=== PATIENT | male | born 1945 | race Caucasian/White ===

== ENCOUNTER 2021-03-12 17:52 | Emergency (ER) | payer MEDICARE ==
[~2021-03-12] VITALS: Ht 175.3 cm; Wt 95.5 kg
[~2021-03-12 17:52] MED LIST: METF-950 PO
[2021-03-12 18:17] LABS: CLARITY,URINE CLEAR (Clear); COLOR,URINE YELLOW (Yellow); GLUCOSE, URINE >=1000 mg/dl (Neg); KETONES,URINE TRACE mg/dl (Neg); LEUKOCYTE ESTERASE ,URINE NEGATIVE (Neg); NITRITES, URINE NEGATIVE (Neg); OCCULT BLOOD,URINE NEGATIVE (Neg); PROTEIN,URINE NEGATIVE (Neg); UROBILINOGEN,URINE 0.2 E.U/dL (0.2-1.0)
[2021-03-12 18:18] LABS: BASOPHILS # (AUTO) 0.1 X10'3 (0-0.2); BASOPHILS % (AUTO) 1.1 % (0-1); EOSINOPHILS # (AUTO) 0.1 X10'3 (0-0.9); LYMPHOCYTES # (AUTO) 1.7 X10'3 (1.1-4.8); LYMPHOCYTES % (AUTO) 27.1 % (21-51); MEAN CORPUSCULAR HEMOGLOBIN 31.3 PG (27.0-31.0); MEAN CORPUSCULAR HGB CONC 34.9 g/dL (33.0-36.5); MEAN CORPUSCULAR VOLUME 89.7 FL (78-98); MEAN PLATELET VOLUME 7.1 FL (7.4-10.4); MONOCYTES # (AUTO) 0.4 X10'3 (0-0.9); MONOCYTES % (AUTO) 6.7 % (2-12); NEUTROPHILS % (AUTO) 63.1 % (42-75); PLATELET COUNT 239 X10'3 (140-440); RED BLOOD COUNT 5.12 X10'6 (4.70-6.10); RED CELL DISTRIBUTION WIDTH 13.9 % (11.5-14.5); WHITE BLOOD COUNT 6.3 X10'3 (4.5-11.0)
[2021-03-12 18:22] LABS: PARTIAL THROMBOPLASTIN TIME 27 SECONDS (22-32)
[2021-03-12 18:26] LABS: ALANINE AMINOTRANSFERASE 41 U/L (12-78); ALBUMIN 3.9 G/DL (3.4-5.0); ALBUMIN/GLOBULIN RATIO 1.2 (1.1-1.5); ALKALINE PHOSPHATASE 76 IU/L (46-116); ANION GAP 9 (8-16); ASPARTATE AMINO TRANSFERASE 25 U/L (10-37); BILIRUBIN,TOTAL 0.7 MG/DL (0.1-1.0); BLOOD UREA NITROGEN 22 MG/DL (7-18); BUN/CREATININE RATIO 15.6 (5.4-32.0); CALCIUM 9.3 MG/DL (8.5-10.1); CHLORIDE 102 MMOL/L (99-107); CREATININE 1.41 MG/DL (0.60-1.10); GLUCOSE 145 MG/DL (70-104); SODIUM 138 MMOL/L (135-145); TOTAL CARBON DIOXIDE 27.3 MMOL/L (24-32); TOTAL PROTEIN 7.2 G/DL (6.4-8.2); eGFR 49 ML/MIN
[2021-03-12 18:37] LABS: UA COLLECTION TYPE NON-SPECIFIED
[2021-03-12 18:38] LABS: BACTERIA,URINE NONE SEEN /HPF (Neg); MUCUS STRANDS FEW /LPF (Neg); RBC,URINE 0-2 /HPF (0-2); SQUAMOUS EPITHELIAL CELL,UR FEW /LPF (FEW); WBC,URINE NONE SEEN /HPF (0-4)
--- NOTE | 2021-03-12 18:46 | NUR ---
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
[2021-03-12] MEDS ORDERED: VALA10002 PO (19:00)
[2021-03-12] MEDS ORDERED: valacyclovir 500mg tablet PO ONE (19:00)
[2021-03-12] MEDS ORDERED: predniSONE 20 mg tablet PO ONE (19:00)
[2021-03-12] MEDS ORDERED: PRED20TA PO (19:00)
[2021-03-12] MEDS ORDERED: ERYT1OIN6 LEFTEYE (19:16)
[2021-03-12 20:40] VITALS: BP 142/75
== END 2021-03-12 20:41 | disposition home or self-care (01) ==
LOC: ER 17:54
DX: G51.0 Bell's palsy (principal); E78.00 Pure hypercholesterolemia, unspecified; I10 Essential (primary) hypertension; E11.9 Type 2 diabetes mellitus without complications; Z85.9 Personal history of malignant neoplasm, unspecified; Z79.899 Other long term (current) drug therapy
CPT/HCPCS: 36415; 70450; 71045; 80053; 81001; 85025; 85610; 85730; 86885; 86900; 86901; 93005; 99285; J7512

== ENCOUNTER 2022-07-10 21:46 | Inpatient (IN) | payer MEDICARE ==
[~2022-07-10] VITALS: Ht 172.7 cm; Wt 95.0 kg
[~2022-07-10 21:46] MED LIST changes: +METF-1203 PO; -METF-950 PO; +VALA10002 PO
[2022-07-10 22:14] LABS: BASOPHILS # (AUTO) 0.1 X10'3 (0-0.2); BASOPHILS % (AUTO) 1.2 % (0-1); EOSINOPHILS # (AUTO) 0.1 X10'3 (0-0.9); EOSINOPHILS % (AUTO) 1.2 % (0-6); HEMATOCRIT 46.2 % (42.0-52.0); HEMOGLOBIN 15.5 g/dl (14.0-17.9); LYMPHOCYTES # (AUTO) 0.5 X10'3 (1.1-4.8); LYMPHOCYTES % (AUTO) 9.8 % (21-51); MEAN CORPUSCULAR HEMOGLOBIN 30.6 PG (27.0-31.0); MEAN CORPUSCULAR HGB CONC 33.6 g/dL (33.0-36.5); MEAN CORPUSCULAR VOLUME 90.9 FL (78-98); MEAN PLATELET VOLUME 7.1 FL (7.4-10.4); MONOCYTES # (AUTO) 0.3 X10'3 (0-0.9); NEUTROPHILS # (AUTO) 4.6 X10'3 (1.8-7.7); NEUTROPHILS % (AUTO) 81.8 % (42-75); PLATELET COUNT 187 X10'3 (140-440); RED BLOOD COUNT 5.08 X10'6 (4.70-6.10); RED CELL DISTRIBUTION WIDTH 14.7 % (11.5-14.5); WHITE BLOOD COUNT 5.6 X10'3 (4.5-11.0)
[2022-07-10 22:21] LABS: ALANINE AMINOTRANSFERASE 488 U/L (12-78); ALBUMIN 3.8 G/DL (3.4-5.0); ALBUMIN/GLOBULIN RATIO 1.1 (1.1-1.5); ALKALINE PHOSPHATASE 189 IU/L (46-116); ANION GAP 7 (8-16); ASPARTATE AMINO TRANSFERASE 492 U/L (10-37); BILIRUBIN,TOTAL 3.1 MG/DL (0.1-1.0); BLOOD UREA NITROGEN 22 MG/DL (7-18); BUN/CREATININE RATIO 13.3 (5.4-32.0); CALCIUM 10.6 MG/DL (8.5-10.1); CHLORIDE 100 MMOL/L (99-107); CREATININE 1.65 MG/DL (0.60-1.10); GLUCOSE 198 MG/DL (70-104); POTASSIUM 4.5 MMOL/L (3.5-5.1); SODIUM 137 MMOL/L (135-145); TOTAL CARBON DIOXIDE 29.9 MMOL/L (24-32); TOTAL PROTEIN 7.4 G/DL (6.4-8.2); eGFR 41 ML/MIN
[2022-07-10] MEDS ORDERED: LOVA20TA2 PO (22:40)
[2022-07-10] MEDS ORDERED: METO1TAB12 PO (22:40)
[2022-07-10] MEDS ORDERED: morphine 4 MG/ML inj SYRINge IV ONE (23:00)
[2022-07-10] MEDS ORDERED: ondansetron/PF 4mg/2ml inj IV ONE (23:05)
[2022-07-10] MEDS ORDERED: aspirin 81mg tab.chew PO ONE (23:05)
[2022-07-10 23:15] LABS: LIPASE 199 U/L (73-393)
[2022-07-11] VITALS (10 sets, daily range): BP systolic 116–149; BP diastolic 55–85
[2022-07-11] MEDS ORDERED: potassium Cl 20 mEq SR tablet PO PRN ×2 (04:25)
[2022-07-11] MEDS ORDERED: magnesium hydroxide 30ml (MOM) UD suspension PO PRN (04:25)
[2022-07-11] MEDS ORDERED: diphenhydrAMINE 50 mg/ml inj IV PRN (04:25)
[2022-07-11] MEDS ORDERED: HYDROcodone/acetaminophen 5mg/325mg tablet PO PRN (04:25)
[2022-07-11] MEDS ORDERED: ondansetron 4mg rapidly disintigrating tab PO PRN (04:25)
[2022-07-11] MEDS ORDERED: diphenhydrAMINE 25mg capsule PO PRN (04:25)
[2022-07-11] MEDS ORDERED: morphine 2 MG/ML inj. syringe IV PRN ×2 (04:25)
[2022-07-11] MEDS ORDERED: mag hydrox/Alum hydrox/simeth 30ml oral suspension PO PRN (04:25)
[2022-07-11] MEDS ORDERED: ondansetron/PF 4mg/2ml inj IV PRN (04:25)
[2022-07-11] MEDS ORDERED: acetaminophen 650mg rectal suppository RC PRN (04:25)
[2022-07-11] MEDS ORDERED: bisacodyl 10mg suppository rectal RC PRN (04:25)
[2022-07-11] MEDS ORDERED: acetaminophen 325mg tablet PO PRN ×2 (04:25)
[2022-07-11] MEDS ORDERED: potassium Cl 40MEQ/1/2NS 520ml 520 ML IV PRN (04:25)
[2022-07-11] MEDS ORDERED: magnesium 4gm in 100ml NS 100 ML IV PRN ×2 (04:25→05:05)
[2022-07-11] MEDS ORDERED: HYDROmorphone inj. 0.5 MG/0.5 ML DISP.SYRIN IV PRN (04:25)
[2022-07-11] MEDS ORDERED: HYDROcodone/acetaminophen 10/325mg tab PO PRN (04:25)
[2022-07-11] MEDS ORDERED: magnesium Cl slow-release 64mg tablet PO PRN ×2 (04:25→05:05)
[2022-07-11] MEDS ORDERED: DEXTROSE 15 GM of carb/4 tabs (each vial/BOTTLE has 4 tablets) PO PRN ×2 (04:35)
[2022-07-11] MEDS ORDERED: MESSAGE TO PHARMACY PO ONE (04:35)
[2022-07-11] MEDS ORDERED: dextrose 50%-water 50ml dispensing syringe IV PRN ×2 (04:35)
[2022-07-11] MEDS ORDERED: glucagon, human recombinant 1mg kit SUBCUT PRN (04:35)
[2022-07-11] MEDS ORDERED: insulin Lispro (HumaLOG) vial - multi-dose SQ SCH (04:35)
[2022-07-11] MEDS ORDERED: hydrALAZINE 20mg/ml inj. IV PRN (04:45)
[2022-07-11 04:46] LABS: MAGNESIUM 1.1 MG/DL (1.5-2.4)
[2022-07-11] MEDS ORDERED: METO-411 PO (04:48)
[2022-07-11] MEDS ORDERED: albuterol 60 PUFF/8GM Inhaler IH PRN (04:50)
[2022-07-11] MEDS ORDERED: magnesium 2GM in 50ml NS 50 ML IV PRN (05:05)
[2022-07-11] MEDS: normal saline 1000ml 1,000 ML IV SCH ×2 (05:21→14:25)
[2022-07-11 07:11] LABS: D-DIMER 1.26 MG/L FEU (0-0.50)
[2022-07-11] MEDS ORDERED: dexamethasone 4mg/ml inj IV SCH (08:00)
[2022-07-11] MEDS: docusate sod 100mg capsule PO SCH ×2 (08:00→20:00)
[2022-07-11] MEDS: K and/or MAG REPLACEMENT MC SCH ×2 (08:00→20:00)
[2022-07-11 09:06] LABS: BASOPHILS % (AUTO) 0.4 % (0-1); EOSINOPHILS % (AUTO) 0.1 % (0-6); HEMATOCRIT 43.6 % (42.0-52.0); HEMOGLOBIN 14.4 g/dl (14.0-17.9); LYMPHOCYTES # (AUTO) 0.3 X10'3 (1.1-4.8); LYMPHOCYTES % (AUTO) 5.4 % (21-51); MEAN CORPUSCULAR HEMOGLOBIN 30.3 PG (27.0-31.0); MEAN CORPUSCULAR HGB CONC 33.1 g/dL (33.0-36.5); MEAN CORPUSCULAR VOLUME 91.7 FL (78-98); MEAN PLATELET VOLUME 7.5 FL (7.4-10.4); MONOCYTES # (AUTO) 0.4 X10'3 (0-0.9); MONOCYTES % (AUTO) 6.1 % (2-12); NEUTROPHILS # (AUTO) 5.2 X10'3 (1.8-7.7); PLATELET COUNT 163 X10'3 (140-440); RED BLOOD COUNT 4.75 X10'6 (4.70-6.10); RED CELL DISTRIBUTION WIDTH 14.6 % (11.5-14.5); WHITE BLOOD COUNT 5.9 X10'3 (4.5-11.0)
[2022-07-11 09:12] LABS: ALANINE AMINOTRANSFERASE 862 U/L (12-78); ALBUMIN 3.3 G/DL (3.4-5.0); ALKALINE PHOSPHATASE 206 IU/L (46-116); ANION GAP 11 (8-16); ASPARTATE AMINO TRANSFERASE 887 U/L (10-37); BILIRUBIN,TOTAL 4.4 MG/DL (0.1-1.0); BLOOD UREA NITROGEN 24 MG/DL (7-18); CALCIUM 9.9 MG/DL (8.5-10.1); CHLORIDE 99 MMOL/L (99-107); CREATININE 1.33 MG/DL (0.60-1.10); GLUCOSE 196 MG/DL (70-104); POTASSIUM 4.3 MMOL/L (3.5-5.1); SODIUM 134 MMOL/L (135-145); TOTAL CARBON DIOXIDE 23.9 MMOL/L (24-32); eGFR 53 ML/MIN
[2022-07-11 09:14] LABS: TOTAL PROTEIN 6.5 G/DL (6.4-8.2)
[2022-07-11] MEDS: pantoprazole 40MG/NS 100ML BAG 100 ML IV SCH (09:22)
[2022-07-11 09:26] LABS: APTT 25 SECONDS (22-32)
[2022-07-11] MEDS: piperacillin/tazo 3.375gm/50ml 50 ML IV SCH ×2 (09:46→17:23)
[2022-07-11 09:55] LABS: MAGNESIUM 2.4 MG/DL (1.5-2.4)
--- NOTE | 2022-07-11 13:36 | NUR ---
relieving RN for lunch, pt is resting quietly on hospital bed, no beds available upstairs, pt is aware, no complaints, family at bedside
--- NOTE | 2022-07-11 13:59 | NUR ---
[facility] CALLED. THEY ARE ON THEIR WAY IN WILL BE TAKING PT SHORTLY
[2022-07-11 14:13] LABS: HEMOGLOBIN A1C 6.7 % (4.5-6.2)
[2022-07-11] MEDS ORDERED: FENTANYL CITRATE/PF 50 MCG/1 ML VIAL ONE (14:26)
[2022-07-11] MEDS ORDERED: iohexol 300mg/ml 100ml inj. ONE (14:26)
[2022-07-11] MEDS ORDERED: MIDAZolam 1 MG/ML 5ML VIAL ONE (14:26)
[2022-07-11] MEDS ORDERED: levoFLOXACIN-Levaquin 500mg/D5 0 ML IV ONE (14:26)
[2022-07-11] MEDS ORDERED: LIDOcaine Viscous 15ml cup ONE (14:27)
[2022-07-11] MEDS ORDERED: glucagon, human recombinant 1mg kit ONE (14:27)
[2022-07-11] MEDS ORDERED: proCHLORperazine 10 MG/2 ml inj ONE (15:09)
--- NOTE | 2022-07-11 17:04 | NUR ---
PT returning from GI to the ED via RN
--- NOTE | 2022-07-11 17:34 | NUR ---
Attempted to call report to the floor but admitting RN Anna unable to take report at this time. Floor charge to have admitting RN call ED back for report.
--- NOTE | 2022-07-11 18:55 | NUR ---
gave report to Josee.
[2022-07-12] MEDS: normal saline 1000ml 1,000 ML IV SCH ×4 (00:25→23:34)
[2022-07-12] MEDS: piperacillin/tazo 3.375gm/50ml 50 ML IV SCH ×4 (00:32→23:33)
[2022-07-12 02:00] VITALS: BP 121/74
[2022-07-12 06:00] VITALS: BP 117/63
[2022-07-12 06:06] VITALS: BP 117/63
[2022-07-12 07:04] LABS: MAGNESIUM 1.5 MG/DL (1.5-2.4)
[2022-07-12] MEDS: K and/or MAG REPLACEMENT MC SCH ×2 (08:00→18:58)
--- NOTE | 2022-07-12 08:29 | NUR ---
Diabetes consult: Pt w/ hx of DM A1c 6.7 per EMR, well controlled and appropriate. DM ed not indicated at this time. Addendum: 07/12/22 at [address] Amended: Links added.
[2022-07-12] MEDS: docusate sod 100mg capsule PO SCH ×2 (08:49→18:58)
[2022-07-12] MEDS: pantoprazole 40MG/NS 100ML BAG 100 ML IV SCH (08:49)
[2022-07-12] MEDS: metoprolol succinate 25mg (24-HOUR) SR. Tablet PO SCH (08:49)
[2022-07-12 13:14] LABS: ALANINE AMINOTRANSFERASE 642 U/L (12-78); ALBUMIN 2.7 G/DL (3.4-5.0); ALKALINE PHOSPHATASE 172 IU/L (46-116); ANION GAP 11 (8-16); ASPARTATE AMINO TRANSFERASE 294 U/L (10-37); BILIRUBIN,TOTAL 5.1 MG/DL (0.1-1.0); BLOOD UREA NITROGEN 23 MG/DL (7-18); BUN/CREATININE RATIO 18.1 (5.4-32.0); CALCIUM 8.3 MG/DL (8.5-10.1); CHLORIDE 100 MMOL/L (99-107); CREATININE 1.27 MG/DL (0.60-1.10); GLUCOSE 140 MG/DL (70-104); POTASSIUM 3.7 MMOL/L (3.5-5.1); SODIUM 135 MMOL/L (135-145); TOTAL CARBON DIOXIDE 24.4 MMOL/L (24-32); eGFR 55 ML/MIN
[2022-07-12 13:18] LABS: TOTAL PROTEIN 5.5 G/DL (6.4-8.2)
[2022-07-12 13:45] LABS: BASOPHILS % (AUTO) 0.6 % (0-1); EOSINOPHILS # (AUTO) 0.1 X10'3 (0-0.9); EOSINOPHILS % (AUTO) 1.9 % (0-6); HEMATOCRIT 37.5 % (42.0-52.0); HEMOGLOBIN 12.7 g/dl (14.0-17.9); LYMPHOCYTES # (AUTO) 0.2 X10'3 (1.1-4.8); LYMPHOCYTES % (AUTO) 5.4 % (21-51); MEAN CORPUSCULAR HGB CONC 33.9 g/dL (33.0-36.5); MEAN CORPUSCULAR VOLUME 91.5 FL (78-98); MEAN PLATELET VOLUME 7.2 FL (7.4-10.4); MONOCYTES # (AUTO) 0.2 X10'3 (0-0.9); MONOCYTES % (AUTO) 4.8 % (2-12); NEUTROPHILS # (AUTO) 2.9 X10'3 (1.8-7.7); NEUTROPHILS % (AUTO) 87.3 % (42-75); PLATELET COUNT 84 X10'3 (140-440); RED CELL DISTRIBUTION WIDTH 14.6 % (11.5-14.5); WHITE BLOOD COUNT 3.4 X10'3 (4.5-11.0)
[2022-07-12 15:50] VITALS: BP 124/73
[2022-07-12 18:00] VITALS: BP 110/58
[2022-07-12 23:00] VITALS: BP 125/73
[2022-07-13] VITALS (22 sets, daily range): BP systolic 113–169; BP diastolic 59–95
[2022-07-13 05:55] LABS: EOSINOPHILS # (AUTO) 0.1 X10'3 (0-0.9); EOSINOPHILS % (AUTO) 4.5 % (0-6); HEMATOCRIT 36.9 % (42.0-52.0); HEMOGLOBIN 12.2 g/dl (14.0-17.9); LYMPHOCYTES # (AUTO) 0.3 X10'3 (1.1-4.8); LYMPHOCYTES % (AUTO) 10.5 % (21-51); MEAN CORPUSCULAR HEMOGLOBIN 30.1 PG (27.0-31.0); MEAN CORPUSCULAR HGB CONC 33.1 g/dL (33.0-36.5); MEAN CORPUSCULAR VOLUME 90.9 FL (78-98); MEAN PLATELET VOLUME 7.2 FL (7.4-10.4); MONOCYTES # (AUTO) 0.2 X10'3 (0-0.9); MONOCYTES % (AUTO) 8.3 % (2-12); NEUTROPHILS % (AUTO) 75.7 % (42-75); PLATELET COUNT 81 X10'3 (140-440); RED BLOOD COUNT 4.06 X10'6 (4.70-6.10); RED CELL DISTRIBUTION WIDTH 14.7 % (11.5-14.5); WHITE BLOOD COUNT 2.6 X10'3 (4.5-11.0)
--- NOTE | 2022-07-13 05:55 | NUR ---
reported to days. noted pt getting ready for surgery today around 10am. NPO
[2022-07-13 06:03] LABS: ALANINE AMINOTRANSFERASE 415 U/L (12-78); ALBUMIN 2.4 G/DL (3.4-5.0); ALBUMIN/GLOBULIN RATIO 0.8 (1.1-1.5); ALKALINE PHOSPHATASE 138 IU/L (46-116); ANION GAP 11 (8-16); ASPARTATE AMINO TRANSFERASE 122 U/L (10-37); BILIRUBIN,TOTAL 1.6 MG/DL (0.1-1.0); BLOOD UREA NITROGEN 16 MG/DL (7-18); BUN/CREATININE RATIO 15.4 (5.4-32.0); CHLORIDE 103 MMOL/L (99-107); CREATININE 1.04 MG/DL (0.60-1.10); GLUCOSE 113 MG/DL (70-104); MAGNESIUM 1.4 MG/DL (1.5-2.4); POTASSIUM 3.7 MMOL/L (3.5-5.1); SODIUM 138 MMOL/L (135-145); TOTAL CARBON DIOXIDE 24.5 MMOL/L (24-32); TOTAL PROTEIN 5.6 G/DL (6.4-8.2); eGFR 70 ML/MIN
[2022-07-13] MEDS ORDERED: INDOCYANINE GREEN 25 MG/10 ML VIAL IV ONE (06:15)
[2022-07-13 06:48] LABS: LARGE PLATELETS FEW; PLATELET ESTIMATE DECREASED; TOTAL CELLS COUNTED 100
[2022-07-13] MEDS: pantoprazole 40MG/NS 100ML BAG 100 ML IV SCH (07:33)
[2022-07-13] MEDS: piperacillin/tazo 3.375gm/50ml 50 ML IV SCH ×3 (07:39→23:34)
[2022-07-13] MEDS: K and/or MAG REPLACEMENT MC SCH ×2 (07:39→19:16)
[2022-07-13] MEDS: docusate sod 100mg capsule PO SCH ×2 (07:49→20:00)
[2022-07-13] MEDS: metoprolol succinate 25mg (24-HOUR) SR. Tablet PO SCH (07:51)
[2022-07-13] MEDS ORDERED: INDOCYANINE GREEN 25 MG/10 ML VIAL IV STA (09:10)
[2022-07-13] MEDS ORDERED: LIDOcaine 1% 30ml preserv. free vial ONE (10:06)
[2022-07-13] MEDS ORDERED: BUPIVAcaine/PF 2.5 mg/ml (0.25%) 30ml vial ONE (10:06)
[2022-07-13] MEDS ORDERED: fentaNYL/PF 50MCG/1 ML 2ML syringe ONE (11:22)
[2022-07-13] MEDS ORDERED: midazolam 1 mg/ML 2ml injection ONE (11:23)
[2022-07-13] MEDS ORDERED: propofol inj 20 ML IV ONE (11:35)
[2022-07-13] MEDS ORDERED: rocuronium 10mg/ml inj IV ONE (11:35)
[2022-07-13] MEDS ORDERED: BUPIVAcaine/PF 2.5 mg/ml (0.25%) 30ml vial IJ ONE (11:53)
[2022-07-13] MEDS ORDERED: LIDOcaine 1% 30ml preserv. free vial IJ ONE (11:53)
[2022-07-13] MEDS ORDERED: ringers solution, lacted 1,000 ML IV SCH (12:05)
[2022-07-13] MEDS ORDERED: morphine 2 MG/ML inj. syringe IV PRN (12:05)
[2022-07-13] MEDS ORDERED: meperidine/PF 25mg/ml syringe IV PRN ×3 (12:05)
[2022-07-13] MEDS ORDERED: proCHLORperazine 10 MG/2 ml inj IV PRN (12:05)
[2022-07-13] MEDS ORDERED: morphine 4 MG/ML inj SYRINge IV PRN (12:05)
[2022-07-13] MEDS ORDERED: ondansetron/PF 4mg/2ml inj IV PRN (12:05)
[2022-07-13] MEDS ORDERED: glycopyrrolate 0.2mg/ml inj ONE (12:14)
[2022-07-13] MEDS ORDERED: neostigmine methylsulfate 1 MG/ML 10ml vial ONE (12:14)
--- NOTE | 2022-07-13 12:32 | NUR ---
Received from OR via [facility], accompanied by Anesthesiologist DR BERKOWITZ and report given by Anesthesiologist AND TIME STUDY STATISTICIAN. PT DROWSY, NO S/S OF DISTRESS/DISCOMFORT. ABDOMEN W/4 LAP SITES W/BANDAIDS CDI. Addendum: 07/13/22 at 1316 by Denise Love RN Amended: Links added.
[2022-07-13] MEDS ORDERED: HYDROcodone/acetaminophen 5mg/325mg tablet PO PRN (12:35)
[2022-07-13] MEDS ORDERED: naloxone 0.4 mg/ml inj IV PRN (12:35)
[2022-07-13] MEDS ORDERED: HYDROcodone/acetaminophen 10/325mg tab PO PRN (12:35)
--- NOTE | 2022-07-13 13:05 | NUR ---
PT PULLED OF LEADS, O2 SAT AND PULLED OUT PIV. PT REORIENTED TO PLACE AND SITUATION, PT ORIENTS WELL. NEW 20 GAUGE PIV TO LEFT HAND PLACED. Addendum: 07/13/22 at 1319 by Denise Love RN Amended: Links added.
--- NOTE | 2022-07-13 14:02 | NUR ---
Report called to receiving nurse. Transferred via BED, NO Belongings, RECEIVING RN AT BEDSIDE TO RECEIVE PT. BLL, CALL LIGHT GIVEN, SIDE RAILS UP X 2. Special Issues communicated to receiving nurse. YES. Addendum: 07/13/22 at 1428 by Denise Love RN Amended: Links added.
[2022-07-13] MEDS: normal saline 1000ml 1,000 ML IV SCH (16:25)
[2022-07-14 02:00] VITALS: BP 167/89
[2022-07-14 02:23] VITALS: BP 167/89
[2022-07-14] MEDS: normal saline 1000ml 1,000 ML IV SCH (02:25)
[2022-07-14 06:00] VITALS: BP 147/87
[2022-07-14 07:43] LABS: ALANINE AMINOTRANSFERASE 324 U/L (12-78); ALBUMIN 2.8 G/DL (3.4-5.0); ALBUMIN/GLOBULIN RATIO 0.8 (1.1-1.5); ALKALINE PHOSPHATASE 148 IU/L (46-116); ANION GAP 9 (8-16); ASPARTATE AMINO TRANSFERASE 76 U/L (10-37); BILIRUBIN,TOTAL 1.2 MG/DL (0.1-1.0); BLOOD UREA NITROGEN 15 MG/DL (7-18); BUN/CREATININE RATIO 13.9 (5.4-32.0); CALCIUM 8.6 MG/DL (8.5-10.1); CHLORIDE 102 MMOL/L (99-107); CREATININE 1.08 MG/DL (0.60-1.10); GLUCOSE 128 MG/DL (70-104); MAGNESIUM 1.4 MG/DL (1.5-2.4); POTASSIUM 3.9 MMOL/L (3.5-5.1); SODIUM 136 MMOL/L (135-145); TOTAL CARBON DIOXIDE 25.1 MMOL/L (24-32); TOTAL PROTEIN 6.4 G/DL (6.4-8.2); eGFR 67 ML/MIN
[2022-07-14 07:47] LABS: BASOPHILS % (AUTO) 0.9 % (0-1); EOSINOPHILS # (AUTO) 0.1 X10'3 (0-0.9); EOSINOPHILS % (AUTO) 3.9 % (0-6); HEMOGLOBIN 14.3 g/dl (14.0-17.9); LYMPHOCYTES # (AUTO) 0.5 X10'3 (1.1-4.8); LYMPHOCYTES % (AUTO) 15.2 % (21-51); MEAN CORPUSCULAR HEMOGLOBIN 31.1 PG (27.0-31.0); MEAN CORPUSCULAR HGB CONC 34.2 g/dL (33.0-36.5); MEAN PLATELET VOLUME 7.5 FL (7.4-10.4); MONOCYTES # (AUTO) 0.4 X10'3 (0-0.9); MONOCYTES % (AUTO) 12.4 % (2-12); NEUTROPHILS # (AUTO) 2.1 X10'3 (1.8-7.7); NEUTROPHILS % (AUTO) 67.6 % (42-75); PLATELET COUNT 125 X10'3 (140-440); RED BLOOD COUNT 4.62 X10'6 (4.70-6.10); RED CELL DISTRIBUTION WIDTH 14.6 % (11.5-14.5)
[2022-07-14] MEDS: docusate sod 100mg capsule PO SCH (08:00)
[2022-07-14 08:01] LABS: PLATELET ESTIMATE DECREASED; TOTAL CELLS COUNTED 100
[2022-07-14] MEDS: pantoprazole 40MG/NS 100ML BAG 100 ML IV SCH ×2 (08:01→08:10)
[2022-07-14] MEDS: metoprolol succinate 25mg (24-HOUR) SR. Tablet PO SCH (08:01)
--- NOTE | 2022-07-14 09:14 | NUR ---
sent to dr. adame [id number] [place]: pt states he was told yesterday that he was going home. He wants to go home now. Discharge orders? thank you. Sun BOOTH [id number]
--- NOTE | 2022-07-14 10:00 | NUR ---
Discharge instructions discussed with patient and spouse. All questions answered. Pt and spouse state they understand. piv discontinued. pt leaving unit via wheelchair.
== END 2022-07-14 10:09 | disposition home or self-care (01) | DRG 417 ==
LOC: ER 21:46 → ED HOLD 07-11 04:32 → PCU 3S 07-11 18:04
PROVIDERS: ADMIT Family Medicine; ATTEND Family Medicine
PROC: 0FC98ZZ Extirpation of Matter from Common Bile Duct, Via Natural or Artificial Opening Endoscopic (ICD-10-PCS; 2022-07-11)
PROC: 0DB78ZX Excision of Stomach, Pylorus, Via Natural or Artificial Opening Endoscopic, Diagnostic (ICD-10-PCS; 2022-07-11)
PROC: BF131ZZ Fluoroscopy of Gallbladder and Bile Ducts using Low Osmolar Contrast (ICD-10-PCS; 2022-07-11)
PROC: 8E0W4CZ Robotic Assisted Procedure of Trunk Region, Percutaneous Endoscopic Approach (ICD-10-PCS; 2022-07-13)
PROC: BF502Z0 Other Imaging of Bile Ducts using Fluorescing Agent, Intraoperative (ICD-10-PCS; 2022-07-13)
PROC: 0FT44ZZ Resection of Gallbladder, Percutaneous Endoscopic Approach (ICD-10-PCS; principal; 2022-07-13 11:17)
DX: K80.63 Calculus of gallbladder and bile duct with acute cholecystitis with obstruction (principal); N17.0 Acute kidney failure with tubular necrosis; B17.9 Acute viral hepatitis, unspecified; E87.1 Hypo-osmolality and hyponatremia; I12.9 Hypertensive chronic kidney disease with stage 1 through stage 4 chronic kidney disease, or unspecified chronic kidney disease; K76.0 Fatty (change of) liver, not elsewhere classified; K57.90 Diverticulosis of intestine, part unspecified, without perforation or abscess without bleeding; E11.22 Type 2 diabetes mellitus with diabetic chronic kidney disease; Z20.822 Contact with and (suspected) exposure to COVID-19; E83.41 Hypermagnesemia; E11.65 Type 2 diabetes mellitus with hyperglycemia; K76.9 Liver disease, unspecified; E78.00 Pure hypercholesterolemia, unspecified; E83.42 Hypomagnesemia; K29.80 Duodenitis without bleeding; N18.9 Chronic kidney disease, unspecified; Z85.46 Personal history of malignant neoplasm of prostate; Z79.899 Other long term (current) drug therapy
CPT/HCPCS: 36415; 43261; 43262; 43264; 71045; 71250; 74176; 76700; 80053; 82948; 83036; 83690; 83735; 83880; 84443; 84484; 85007; 85025; 85379; 85610; 85730; 87081; 87811; 88304; 88305; 93005; 93306; 99152; 99153; 99285; A4215; A4618; A4620; A7000; C1769; C9113; G0378; J0780; J1610; J1815; J1956; J2250; J2270; J2405; J2543; J2704; J2710; J3010; J3475; J3490; J7030; J7120; Q9967